=== PATIENT | female | born 1990 | race Caucasian/White ===

== ENCOUNTER → 2022-10-30 09:51 | Outpatient (BNVA) | payer OTHER, SELFPAY | PROVIDERS: PCP Nurse Practitioner; Visit Provider Nurse Practitioner Family | DX: F07.81 Postconcussional syndrome (principal); F41.9 Anxiety disorder, unspecified; F43.10 Post-traumatic stress disorder, unspecified; R42 Dizziness and giddiness; G43.109 Migraine with aura, not intractable, without status migrainosus | CPT/HCPCS: 99202 ==

== ENCOUNTER → 2023-01-08 08:51 | Outpatient (BNVA) | payer OTHER, SELFPAY | PROVIDERS: PCP Nurse Practitioner; Visit Provider Nurse Practitioner Family | DX: F43.10 Post-traumatic stress disorder, unspecified (principal); F07.81 Postconcussional syndrome; G43.109 Migraine with aura, not intractable, without status migrainosus; R42 Dizziness and giddiness; F41.9 Anxiety disorder, unspecified | CPT/HCPCS: 99212 ==

== ENCOUNTER 2023-02-09 11:00 | Outpatient (RCR) | payer OTHER, SELFPAY ==
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
--- NOTE | 2022-12-24 10:00 | MHC.OT.OP ---
[address] [phone] F: [phone] Occupational Therapy Progress Note Patient Name: Rehana Lee Diagnosis: Post-concussion syndrome Date of Evaluation: 11/26/22 Treatments to Date: 6 Cancellations to Date: 0 No Shows to Date: 0 Subjective: 12/24 - I'm doing well with my stress management strategies, I really need to work on my memory now. 12/22 - I haven't left the house since last Wednesday. I had such a bad headache all weekend. 12/16 - I tried to get too much done today and now I have a bad headache - the sun made it worse. 12/09 - I'm really not sleeping well. Maybe I was anxious about coming. I don't feel like myself and everything is changed. Pain Score: 0 Pain Location: headache Objective Measures: Pt seen for 60 min OT session for reevaluation and tx focusing on improving cognition. Grounding exercises for nervous system regulation x 5 min [facility]: Score 46 Severe problem areas rated: headaches, noise sensitivity, poor concentration Moderate problem areas: dizziness, sleep disturbance/fatigue, feeling depressed/frustrated, poor memory/processing, light sensitivity Language fluency 8 words in one minute Education re: verbal memory strategies, sequencing tasks, ways to improve attention with reading Initiated bCODE online cognitive training program from [facility] Status: Progressing Assessment: Rehana was seen for OT reassessment this date. Pt is progressing and met 3/4 STG's. Pt has been utilizing breathing and tapping strategies with good success for managing stress and anxiety. She reports decreased frustration and irritability since starting therapy. The [facility] Post-Concussion symptoms questionnaire was re-administered with a 12 point improvement. Self rated positive improvements noted in the areas of dizziness frequency, sleep quality, fatigue, and decreased blurry/double vision. Pt. was educated in remedial and compensatory memory strategies. We downloaded the bCODE karley for her to have a home program to work on for improving attention/memory, and mental flexibility skills. Rehana is very motivated to return to [facility] and feel like 'herself' for her upcoming wedding. Primary barriers remain frequent (almost daily) headaches that she relies on multiple medications to control (a goal of hers is to reduce meds), decreased attention span and concentration, poor short term memory, and delayed processing speed. She is working with a therapist weekly to assist with managing PTSD and anxiety symptoms. We discussed continuing therapy 2x/wk for 4 more weeks with focus on improving attention/concentration/memory for increased IND with IADL's and hopeful return to work. Short Term Goals: Decrease headache frequency/intensity by 50% - PROGRESSING Pt will be educated in and trial sleep hygiene strategies - MET Trial EFT and breathing techniques for stress management - MET Pt. will utilize 2-3 remedial and compensatory strategies to improve memory - MET Half-Way Goals: Decrease headache frequency and intensity to <1 week without headache medication IND with sleep hygiene strategies reporting >5 hours of consecutive sleep IND with stress management techniques Improved QOL as evidence by Rivermead score <32 Improve STM as evidenced by score of 28 on MOCA Improve attention span to >10 min during conversation utilizing learned strategies Tolerate >1 hour of computer work w/o dizziness or headache Frequency and Duration: The patient will be seen 2x/wk for 4 more weeks Treatment Plan: Neuro Re-ed Patient Education Desensitization/Sensory Re-ed ADL Training Post-concussive rehab including education, cognitive therapy, skill training program coordinator, balance exercises, sleep hygiene, stress management Electronically Signed By: Nehal Greene, MS OTR/L Reviewed/agree with student documentation: Therapist:
--- NOTE | 2023-02-09 13:23 | MHC.OT.DC ---
[address] [phone] F: [phone] Occupational Therapy Discharge Note Patient Name: Rehana Lee Provider: Gayle Dodd Diagnosis: Post-concussion syndrome Date of Evaluation: 11/26/22 Date of Discharge: 02/09/23 Treatments to Date: 10 Discharge Status: Improved Function Independent with HEP Discharge Summary: Rehana was seen for final OT visit today. She reports feeling slightly anxious about her upcoming wedding, although she has been managing daily tasks and dealing with stressors well utilizing her learned breathing and nervous system regulation exercises. The Rivermead was re-conducted with an improvement in all areas with a total score of 39 (a 19 point improvement overall). Continued problem areas remain headaches which have greatly improved in intensity and frequency, noise sensitivity, feeling frustrated, and taking longer to think. At this time, Rehana is IND with all strategies and demonstrates understanding of continuing with home program to improve memory/attn/processing skills. Thank you for this referral. Electronically Signed By: Nehal Greene MS OTR/L Reviewed/agree with student documentation: Therapist: Please Sign and return to therapist, thank you for your referral.
== END 2023-02-09 13:24 | disposition home or self-care (01) ==
LOC: HO.OT 11:00
PROVIDERS: PCP Nurse Practitioner; Visit Provider Nurse Practitioner Family
DX: F07.81 Postconcussional syndrome (principal); R42 Dizziness and giddiness
CPT/HCPCS: 97112; 97165; 97530

== ENCOUNTER → 2023-02-15 15:51 | Outpatient (BNVA) | payer OTHER, SELFPAY | PROVIDERS: PCP Nurse Practitioner; Visit Provider Nurse Practitioner Family | DX: F07.81 Postconcussional syndrome (principal); F09 Unspecified mental disorder due to known physiological condition; G43.109 Migraine with aura, not intractable, without status migrainosus; R42 Dizziness and giddiness; F43.10 Post-traumatic stress disorder, unspecified; F41.9 Anxiety disorder, unspecified | CPT/HCPCS: 99212 ==

== ENCOUNTER 2023-06-03 10:57 | Outpatient (AMB) | payer OTHER, SELFPAY ==
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
[2023-06-03 11:03] VITALS: BP 112/70; BMI 27.1
== END 2023-06-03 12:00 | disposition home or self-care (01) ==
PROVIDERS: Visit Provider Nurse Practitioner Family
DX: F41.9 Anxiety disorder, unspecified (principal); F43.10 Post-traumatic stress disorder, unspecified; F07.81 Postconcussional syndrome; G44.309 Post-traumatic headache, unspecified, not intractable; R41.89 Other symptoms and signs involving cognitive functions and awareness
CPT/HCPCS: 99214

== ENCOUNTER → 2023-06-03 10:57 | Outpatient (BNVA) | payer OTHER, SELFPAY | PROVIDERS: Visit Provider Nurse Practitioner Family ==

== ENCOUNTER 2023-09-16 10:21 | Outpatient (AMB) | payer OTHER, SELFPAY ==
[2023-09-16 10:29] VITALS: PULSE 110; O2SAT 98; BMI 27.1
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
== END 2023-09-16 11:25 | disposition home or self-care (01) ==
PROVIDERS: PCP Nurse Practitioner; Visit Provider Nurse Practitioner Family
DX: F43.10 Post-traumatic stress disorder, unspecified (principal); F07.81 Postconcussional syndrome; G44.309 Post-traumatic headache, unspecified, not intractable; F41.9 Anxiety disorder, unspecified; Z33.1 Pregnant state, incidental
CPT/HCPCS: 99214

== ENCOUNTER → 2023-09-16 10:21 | Outpatient (BNVA) | payer OTHER, SELFPAY | PROVIDERS: PCP Nurse Practitioner; Visit Provider Nurse Practitioner Family | DX: O99.342 Other mental disorders complicating pregnancy, second trimester (principal); F07.81 Postconcussional syndrome; F43.10 Post-traumatic stress disorder, unspecified; F41.9 Anxiety disorder, unspecified; F09 Unspecified mental disorder due to known physiological condition; O99.352 Diseases of the nervous system complicating pregnancy, second trimester; G43.109 Migraine with aura, not intractable, without status migrainosus; O26.892 Other specified pregnancy related conditions, second trimester; R42 Dizziness and giddiness; Z3A.18 18 weeks gestation of pregnancy; Z79.899 Other long term (current) drug therapy | CPT/HCPCS: 99212 ==

== ENCOUNTER 2023-12-14 08:57 | Outpatient (AMB) | payer OTHER, SELFPAY ==
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
[2023-12-14 09:05] VITALS: BP 108/78; PULSE 103; O2SAT 99; BMI 41.3
== END 2023-12-14 10:13 | disposition home or self-care (01) ==
PROVIDERS: PCP Nurse Practitioner; Visit Provider Nurse Practitioner Family
DX: G43.109 Migraine with aura, not intractable, without status migrainosus (principal); R42 Dizziness and giddiness; F07.81 Postconcussional syndrome
CPT/HCPCS: 99214

== ENCOUNTER → 2023-12-14 08:57 | Outpatient (BNVA) | payer OTHER, SELFPAY | PROVIDERS: PCP Nurse Practitioner; Visit Provider Nurse Practitioner Family | DX: F07.81 Postconcussional syndrome (principal); G43.109 Migraine with aura, not intractable, without status migrainosus; R42 Dizziness and giddiness | CPT/HCPCS: 99212 ==

== ENCOUNTER 2024-03-29 10:29 | Outpatient (AMB) | payer OTHER, SELFPAY ==
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
[2024-03-29 10:55] VITALS: BMI 41.3
== END 2024-03-29 11:41 | disposition home or self-care (01) ==
PROVIDERS: PCP Nurse Practitioner; Visit Provider Nurse Practitioner Family
DX: F07.81 Postconcussional syndrome (principal); G44.309 Post-traumatic headache, unspecified, not intractable; R42 Dizziness and giddiness; F41.9 Anxiety disorder, unspecified; F43.10 Post-traumatic stress disorder, unspecified; R41.89 Other symptoms and signs involving cognitive functions and awareness
CPT/HCPCS: 99214

== ENCOUNTER → 2024-03-29 10:29 | Outpatient (BNVA) | payer OTHER, SELFPAY | PROVIDERS: PCP Nurse Practitioner; Visit Provider Nurse Practitioner Family | DX: F07.81 Postconcussional syndrome (principal); G43.109 Migraine with aura, not intractable, without status migrainosus; R42 Dizziness and giddiness; F41.9 Anxiety disorder, unspecified; F43.10 Post-traumatic stress disorder, unspecified; F09 Unspecified mental disorder due to known physiological condition; Z79.899 Other long term (current) drug therapy | CPT/HCPCS: 99212 ==

== ENCOUNTER → 2024-10-25 10:36 | Outpatient (BNVA) | payer OTHER, SELFPAY | PROVIDERS: PCP Nurse Practitioner; Visit Provider Nurse Practitioner Family | DX: F07.81 Postconcussional syndrome (principal); G43.109 Migraine with aura, not intractable, without status migrainosus; R42 Dizziness and giddiness; F41.9 Anxiety disorder, unspecified; F43.10 Post-traumatic stress disorder, unspecified; F09 Unspecified mental disorder due to known physiological condition | CPT/HCPCS: 99212 ==

== ENCOUNTER 2025-03-28 08:28 | Outpatient (REF) | payer OTHER, SELFPAY ==
--- NOTE | ~2025-03-28 | XR_ITS ---
CLINICAL HISTORY: M25.562 - Pain in left knee Left knee three views Comparison: None provided Findings: No acute fracture or dislocation noted. No significant joint effusion identified. Degenerative change with joint space loss. This is greatest in medial compartment. Question prior ACL repair bony defects. No soft tissue foreign body. Impression: No acute bony abnormality This document has been electronically signed by: Gallito Whitman MD on 03/28/2025 21:09:02
--- OUTSIDE RECORDS SUMMARY | 2025-03-29 08:48 | XMS_ITS | Clinical Summary ---
Author Organization [facility] Address [address] [place] [phone] Phone Care Team Providers Care Edge Dyer Name Role Phone Lynn Phillips MD Primary [...] age to complete this topic Care Teams Edge Dyer Relationship Specialty Start Date End Date Lynn Phillips MD [address] [place] [id number] [facility] - General 11/24/17
== END 2025-03-28 08:29 | disposition home or self-care (01) ==
LOC: HO.HOSX 08:28
PROVIDERS: Visit Provider Orthopaedic Surgery
DX: M25.562 Pain in left knee (principal); S83.242A Other tear of medial meniscus, current injury, left knee, initial encounter; X50.1XXA Overexertion from prolonged static or awkward postures, initial encounter; Y93.9 Activity, unspecified; Y92.9 Unspecified place or not applicable; Y99.9 Unspecified external cause status
CPT/HCPCS: 73562

== ENCOUNTER 2025-03-28 15:04 | Outpatient (AMB) | payer OTHER, SELFPAY ==
[2025-03-28 15:08] VITALS: BMI 43.5
--- NOTE | 2025-03-28 15:08 | A.OFFVIS_ITS ---
Vital Signs 03/28/25 15:08 Height 5 ft 2 in Weight 238 lb BMI 43.5 Intake Visit Reasons: Left knee pain and giving way Intake Note: Rehana is a 35 year old female who presents with complaints of progressively worsening left knee pain and giving way. The patient states that she has undergone multiple bilateral knee surgeries all performed by Dr. Adamson. She has undergone left knee anterior cruciate ligament reconstructive surgery in the past. The patient states that she injured her knee 2-3 years ago. She twisted her knee and had acute onset of pain. The patient states that she felt a ?pop? in her knee at that time. Since that time her symptoms have gotten worse. She has failed the last 6 weeks of conservative treatment which has included physical therapy exercises, a home exercise program, Tylenol, and anti- inflammatory medicines. Allergies cephalexin (From Keflex) Allergy (Unknown, Verified 03/28/25 15:29) Unknown morphine (MORPHINE) Allergy (Unknown, Verified 03/28/25 15:29) HIVES Morphine Sulfate Allergy (Unknown, Uncoded 03/28/25 15:29) Hives Medication List - Last Reconciled 03/28/25 by Estrada Allen MD amitriptyline 10 - 20 mg (1 - 2 x 10 mg) PO BEDTIME 30 days magnesium oxide 400 mg PO BEDTIME 90 days methylphenidate HCl 10 mg PO BID 30 days riboflavin (vitamin B2) 400 mg (4 x 100 mg) PO DAILY 30 days sertraline 25 mg PO DAILY sumatriptan succinate 50 - 100 mg orally at onset of headache, may repeat in 2 hrs PRN; max 2 tabs per day or 4 tabs/week (may take with Tylenol or Ibuprofen) 30 days [facility] Surgical History History of carpal tunnel release History of repair of ACL History of knee surgery Family History Mother Celiac disease Colitis Father Hyperlipidemia Maternal Grandfather CAD (coronary artery disease) Social History (Updated 03/28/25 @ 15:17 by YULIA Keys) Alcohol intake: former Patient Tobacco Use Status: Never used Tobacco Current occupational status: employed and unemployed Physical Exam Vital Signs: BMI result Body Mass Index 43.5 Const Other: Well-nourished well-developed very friendly female awake alert and oriented x3 in no acute distress Extrem Other: Left knee examination shows a minimal effusion, mild crepitus with range of motion, tenderness along her medial joint line, positive Kaylah's test, no instability Results Reviewed Results Reviewed: Standing full weight-bearing x-rays of the patient's left knee show mild diffuse degenerative changes, no acute bony abnormalities, previous anterior cruciate ligament reconstructive surgical tunnels Assessment & Plan Assessment & Plan (1) Tear of medial meniscus of left knee: Code(s): S83.242A - Other tear of medial meniscus, current injury, left knee, initial encounter Category: Medical Plan Ms. Lee presents with progressively worsening left knee pain and mechanical symptoms most likely due to a medial meniscus tear and possible recurrence anterior cruciate ligament tearing. Thus, I will send the patient for an MRI of her left knee for further evaluation. I will see her back once the MRI is completed to discuss the findings and treatment options. Feel free to call me at any time should questions regarding her orthopedic management arise. Thank you very much for asking me to see this very friendly patient. I spent 22 minutes in reviewing the patient's records and imaging studies, seeing the patient and documenting in the medical record. Orders: Orders MR knee LT wo con Today S83.242A - Other tear of medial meniscus, current injury, left knee, initial encounter XR knee LT 3V 03/28/ M25.562 - Pain in left knee Coding Level of Care Code New Pt Level 3 (84393) Complex EM visit Add On G2211 Diagnoses Tear of medial meniscus of left knee S83.242A
--- OUTSIDE RECORDS SUMMARY | 2025-03-28 17:59 | XMS_ITS | Clinical Summary ---
Author Organization [facility] Address [address] [place] [phone] Phone Care Team Providers Care Carpenters Name Role Phone Lynn Phillips MD Primary Care Prov ider Social History Tobacco Use Types Packs/Day Years Used Date Smoking Tobacco: Never Assessed Comments Unknown Sex and Gender Information Value Date Recorded Sex Assigned at Not on file Legal Sex Female 12:18 PM EST Gender Identity Not on file Sexual Orientation Not on file Plan of Treatment Health Maintenance Due Date Last Done Comments MMR Vaccines (1 of 1 - Stand harjeet series) 1991 Varicella Vaccines (1 of 2 - 13+ 2-dose series) 2003 DTaP,Tdap,and Td Vaccines (1 - Tdap) 02/13/2008 Hepatitis B Vaccines (1 of 3 - 19+ 3-dose series) 2009 Influenza Vaccines (#1) 2024 COVID-19 Vaccine ( - 2023-2 5 season) 2024 HIB Vaccines Aged Out No longer eligi ble based on patient's age to complete this topic HPV Vaccines Aged Out No longer eligi ble based on patient's age to complete this topic Hepatitis A Vaccines Aged Out No long er eligible based on patient's age to complete this topic IPV Vaccines Aged Out No longer eligi ble based on patient's age to complete this topic Men B Vaccine Aged Out No longer elig ible based on patient's age to complete this topic Meningococcal Vaccine Aged Out No brian gabriel eligible based on patient's age to complete this topic Pneumococcal Vaccine Aged Out No long er eligible based on patient's age to complete this topic Care Teams Carpenters Relationship Specialty Start Date End Date Lynn Phillips MD [address] [place] [id number] [facility] - General 11/24/17
== END 2025-03-28 15:30 | disposition home or self-care (01) ==
LOC: HO.HOS 15:04
PROVIDERS: PCP Nurse Practitioner; Visit Provider Orthopaedic Surgery
DX: S83.242A Other tear of medial meniscus, current injury, left knee, initial encounter (principal)
CPT/HCPCS: 99203

== ENCOUNTER → 2025-03-28 15:07 | Outpatient (BNV) | payer OTHER, SELFPAY | PROVIDERS: Visit Provider Radiology Diagnostic Radiology | DX: M25.562 Pain in left knee (principal) | CPT/HCPCS: 73562 ==

== ENCOUNTER 2025-04-08 14:47 | Outpatient (REF) | payer OTHER, SELFPAY ==
--- NOTE | ~2025-04-08 | MR_ITS ---
CLINICAL HISTORY: S83.242A - Other tear of medial meniscus, current injury, left knee, ini... MR left knee without contrast Comparison: DX - XR KNEE LT 3V - 03/28/25 15:07 EDT Findings: Diminutive size medial meniscus. Tear of the posterior horn of the medial meniscus. The lateral meniscus is intact. Status post anterior cruciate ligament reconstruction the graft is discontinuous. There is anterior subluxation of tibia relative to the femur. The posterior cruciate ligament is increased in size and signal. The medial and lateral collateral ligaments are intact. Trace medial periligamentous edema. No edema in the posterior lateral corner. The extensor mechanism is intact. No joint effusion. Trace de la rosa's cyst. There is edema in the medial tibial plateau of the posterior aspect. Increased signal in the medial tibial plateau at the anterior aspect could be secondary to artifact. Bone marrow signal is otherwise normal aside from postsurgical change with artifact. There is chondromalacia in the medial tibiofemoral compartment overlying edema in the medial tibial plateau. Hyaline cartilage is otherwise preserved. Impression: Tear of the posterior horn of the medial meniscus. Diminutive size of the medial meniscus could be secondary to prior meniscectomy. Anterior cruciate ligament reconstruction with tear of the graft. Increased size and signal of the posterior cruciate ligament may indicate partial tear. Edema in the medial tibial plateau at the posterior aspect with associated chondromalacia which is in the region of the tear of the medial meniscus. This document has been electronically signed by: Catrina Hartmann MD on 04/09/2025 22:32:10
== END 2025-04-08 14:48 | disposition home or self-care (01) ==
LOC: HO.MRI 14:47
PROVIDERS: PCP Nurse Practitioner; Visit Provider Orthopaedic Surgery
DX: S83.242A Other tear of medial meniscus, current injury, left knee, initial encounter (principal)
CPT/HCPCS: 73721

== ENCOUNTER → 2025-04-08 14:57 | Outpatient (BNV) | payer OTHER, SELFPAY | PROVIDERS: PCP Nurse Practitioner; Visit Provider Radiology Diagnostic Radiology | DX: S83.242A Other tear of medial meniscus, current injury, left knee, initial encounter (principal) | CPT/HCPCS: 73721 ==

== ENCOUNTER 2025-04-12 10:32 | Outpatient (AMB) | payer OTHER, SELFPAY ==
--- NOTE | 2025-04-12 10:35 | MHC.OFFVIS ---
Vital Signs 04/12/25 10:37 Height 5 ft 2 in Weight 238 lb BMI 43.5 Intake Visit Reasons: OV- Left knee MRI review Intake Note: Rehana is a 35 year old female who presents with complaints of progressively worsening left knee pain and giving way. The patient states that she has undergone multiple bilateral knee surgeries all performed by Dr. Adamson. She has undergone left knee anterior cruciate ligament reconstructive surgery in the past. The patient states that she injured her knee 2-3 years ago. 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 The patient states that she felt a ?pop? in her knee at that time. Since that time her symptoms have gotten worse. She has failed the last 6 weeks of conservative treatment which has included physical therapy exercises, a home exercise program, Tylenol, and anti-inflammatory medicines. Allergies cephalexin (From Keflex) Allergy (Unknown, Verified 04/12/25 10:39) Unknown morphine (MORPHINE) Allergy (Unknown, Verified 04/12/25 10:39) HIVES Morphine Sulfate Allergy (Unknown, Uncoded 04/12/25 10:39) Hives Medication List - Last Reconciled 04/12/25 by Estrada Allen MD amitriptyline 10 - 20 mg (1 - 2 x 10 mg) PO BEDTIME 30 days magnesium oxide 400 mg PO BEDTIME 90 days methylphenidate HCl 10 mg PO BID 30 days riboflavin (vitamin B2) 400 mg (4 x 100 mg) PO DAILY 30 days sertraline 25 mg PO DAILY sumatriptan succinate 50 - 100 mg orally at onset of headache, may repeat in 2 hrs PRN; max 2 tabs per day or 4 tabs/week (may take with Tylenol or Ibuprofen) 30 days [facility] Surgical History History of carpal tunnel release History of repair of ACL History of knee surgery Family History Mother Celiac disease Colitis Father Hyperlipidemia Maternal Grandfather CAD (coronary artery disease) Social History (Updated 03/28/25 @ 15:17 by YULIA Keys) Alcohol intake: former Patient Tobacco Use Status: Never used Tobacco Current occupational status: employed and unemployed Physical Exam Vital Signs: BMI result Body Mass Index 43.5 Extrem Other: Left knee examination shows a minimal effusion, mild discomfort with range of motion, tenderness along her medial joint line, positive Kaylah's test, positive Gabriela's test Results Reviewed Results Reviewed: MRI of the patient's left knee shows a recurrent anterior cruciate ligament graft tear as well as a tear of the posterior horn of the medial meniscus Assessment & Plan Assessment & Plan (1) Tears of meniscus and ACL of left knee: Code(s): S83.207A - Unspecified tear of unspecified meniscus, current injury, left knee, initial encounter; S83.512A - Sprain of anterior cruciate ligament of left knee, initial encounter Category: Medical Plan Ms. Lee presents with left knee pain and mechanical symptoms due to tearing of her anterior cruciate ligament surgical graft as well as a medial meniscus tear. Non operative and surgical treatment options were discussed at length with the patient. The patient is considering undergoing surgery. Thus, I will have her evaluated by Dr. Magallon, my partner who performs this type of surgery. She will follow-up as instructed. Feel free to call me at any time should questions regarding her orthopedic management arise. I spent 21 minutes in reviewing the patient's records and imaging studies, seeing the patient and documenting in the medical record. Coding Level of Care Code Est Pt Level 3 (19180) Complex EM visit Add On G2211 Diagnoses Tears of meniscus and ACL of left knee S83.207A; S83.512A
[2025-04-12 10:37] VITALS: BMI 43.5
--- OUTSIDE RECORDS SUMMARY | 2025-04-12 11:13 | XMS_ITS | Clinical Summary ---
Author Organization [facility] Address [address] [place] [phone] Phone Care Team Providers Care Lens Edge Grinder Machine Name Role Phone Lynn Phillips MD Primary [...] of 3 - 19+ 3-dose series) 2009 COVID-19 Vaccine ( - 2023-2 5 season) 2024 Influenza Vaccines (#1) 2025 HIB Vaccines Aged Out No longer eligi [...] age to complete this topic Care Teams Lens Edge Grinder Machine Relationship Specialty Start Date End Date Lynn Phillips MD [address] [place] [id number] [facility] - General 11/24/17
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
== END 2025-04-12 11:09 | disposition home or self-care (01) ==
LOC: HO.HOS 10:33
PROVIDERS: PCP Nurse Practitioner; Visit Provider Orthopaedic Surgery
DX: S83.207A Unspecified tear of unspecified meniscus, current injury, left knee, initial encounter (principal); S83.512A Sprain of anterior cruciate ligament of left knee, initial encounter
CPT/HCPCS: 99213

== ENCOUNTER 2025-04-27 11:40 | Outpatient (AMB) | payer OTHER, SELFPAY ==
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
--- OUTSIDE RECORDS SUMMARY | 2025-04-27 11:43 | XMS_ITS | Data Portability ---
Author Organization [place] - [facility], [facility] Address [address] [facility] [address] [place] [address] Care Team Providers Care Software Developer Manager Name Role Phone VAMSI BRIAN Primary Care Provider Assessment Encounter Date Assessment Date Assessment LastModified by Organization Details LastModified Time 06/27/2024 06/27/2024 Patient appears to have postconcussive tinnitus related to her head trauma 3 years ago. [email or web address] Not available 06/27/2024 14:30:14 Plan of Treatment [...] Sensorineur al hearing loss of bilateral ears 055532378 Active 2023 JOANA ARIAS [address] [address], [place], [phone], [facility] 4 13:52:14 Bilateral tinnitus 4600288020465 Active 2023 LUIS ENRIQUE GARCIA MD [address] [facility] [place] [address], [place], [phone], [facility] 4 14:28:19 Problem Notes None recorded. Procedures Surgical History Date Name Laterality Status Provider Name and Address Organization Details Recorded Time 06/27/20 Comp Audio with Tymps - 54956 & 61180 completed SARAVANAN ROQUE, [facility] [address] [facility],[address] [address], [place], [phone], [facility] - [facility] 06/27/2024 13:51:59 reconstruction of anterior cruciate ligament of knee joint completed Jaclyn Bhatti [facility] 06/27/2024 14:13:51 Imaging Results None recorded. Procedure Notes None recorded. Medical Equipment None Reported. Allergies Allergen ID Allergen Name Allergen Category Reaction Reaction Severity Criticality Documentation Date Start Date Code Code System Note Provider Name and Address Organization Details Recorded Time 947531 morphine medicatio n Not available Not available Not available 06/27/2024 7052 RxNorm Jaclyn cerda [facility] 14:13:24 831974 Keflex medicatio n Not available Not available Not available 06/27/2024 26510 7 RxNorm Jaclyn cerda [facility] 14:13:30 Medications Name Sig Start Date Stop [...] IN 2 HOURS IF NEDEED MAX 2/DAY,4/W KALTAG 06/27 completed Not Available Not Available Not [...] Details Last Updated DateTime 06/27/2024 157.48 cm 47838.47 g Jaclyn Bhatti [place] - [facility] 06/27/2024 14:11:03 Social History None recorded. Functional Status None recorded. Mental Status None recorded. Family History Nothing Reported. Medical History Condition Response Migraines Y Anxiety Y Depression Y Gynecological HistoryNo gynecological history recorded. Obstetrics History GPAL:G 0 P 0 0 0 0 Past Encounters Encounter ID Performer Location Encounter Start Date Encounter Closed Date Diagnosis/Indication Diagnosis SNOMED-CT Code Diagnosis ICD10 Code Diagnosis Note [id number] LUIS ENRIQUE GARCIA MD [facility] [address] [address] 06/27/2024 13:26:54 06/27/2024 14:29:57 Sensorineural hearing loss of bilateral ears 463935361 H90.3 Audiologic al evaluation results:Ri ght ear:Normal sloping to mild sensorineu ral hearing loss with excellent word recognitio n.Left ear:Normal sloping to mild sensorineu ral hearing loss with excellent word recognitio n.Tympanom etry:Right Ear:Type ALeft Ear:Type AThese findings were reviewed with the patient. Not enough hearing loss to consider amplificat ion. Bilateral tinnitus 048[address] 23686 102 H93.13 Today we discussed the pathophysi [...] Member ID Guarantor Name 06/27/2024 1 GANESH ([facility]) [id number] Rehana Lee [place] [id number] Rehana Lee Notes Date Note Type Note [...] loud noise exposure. LUIS ENRIQUE GARCIA MD [address] [place] [address], [place], [phone], [facility] - [facility] 06/27/2024 14:30:51 OBGyn Episode No OBEpisode recorded.
--- OUTSIDE RECORDS SUMMARY | 2025-04-27 11:43 | XMS_ITS | Clinical Summary ---
Author Organization [facility] Address [address] [place] [phone] Phone Care Team Providers Care Forestry Laborer Name Role Phone Lynn Phillips MD Primary [...] age to complete this topic Care Teams Forestry Laborer Relationship Specialty Start Date End Date Lynn Phillips MD [address] [place] [phone] [facility] - General 11/24/17
== END 2025-04-27 15:30 | disposition home or self-care (01) ==
LOC: HO.HSMS 11:41
PROVIDERS: PCP Nurse Practitioner; Visit Provider Nurse Practitioner Family
DX: F07.81 Postconcussional syndrome (principal); G44.309 Post-traumatic headache, unspecified, not intractable; R42 Dizziness and giddiness; F43.10 Post-traumatic stress disorder, unspecified; F41.9 Anxiety disorder, unspecified; F09 Unspecified mental disorder due to known physiological condition
CPT/HCPCS: 99214

== ENCOUNTER 2025-05-14 10:41 | Outpatient (AMB) | payer OTHER, SELFPAY ==
--- NOTE | 2025-05-14 10:45 | MHC.OFFVIS ---
Vital Signs 05/14/25 10:46 Height 5 ft 2 in Weight 238 lb BMI 43.5 Intake Visit Reasons: OV- Left ACL tear - Discuss Surgery Intake Note: Rehana is a 35 year old female who presents today for a follow up of her Left Knee. She was last seen with Dr. Allen who has referred her to discuss surgery. Hx of ACL Reconstruction. Impression: Tear of the posterior horn of the medial meniscus. Diminutive size of the medial meniscus could be secondary to prior meniscectomy. Anterior cruciate ligament reconstruction with tear of the graft. Increased size and signal of the posterior cruciate ligament may indicate partial tear. Edema in the medial tibial plateau at the posterior aspect with associated chondromalacia which is in the region of the tear of the medial meniscus. Allergies cephalexin (From Keflex) Allergy (Unknown, Verified 05/14/25 10:53) Unknown morphine (MORPHINE) Allergy (Unknown, Verified 05/14/25 10:53) HIVES Morphine Sulfate Allergy (Unknown, Uncoded 05/14/25 10:53) Hives HPI HPI OV- Left ACL tear - Discuss Surgery: Details: Rehana is a 35 year old female who presents today for a follow up of her Left Knee. She was last seen with Dr. Allen who has referred her to discuss surgery. She had 1 right knee ACL reconstruction about 15 years ago and she has had 2 ACL reconstructions in the left knee. First 1 was done in 2003 and then a 2nd 1 in 2010. The 1st was done with a patellar autograft of the 2nd was done with a bone patellar bone allograft. She did well between the 2 surgeries but the 2nd surgery required a large meniscectomy. She did well up until about 2 years ago when she started to be less active. She became and gain weight and her knee has become increasingly painful. She states she feels that she has some instability and also pain. Most of the pain is lateral rather than medial. She would like to get back to her regular activities. Was able to squat and jog comfortably until about 18 mo ago. She wants to jog, walking regularly, carry/ play with her child. She feels her knee swells regularly. [facility] Surgical History History of carpal tunnel release History of repair of ACL History of knee surgery Family History Mother Celiac disease Colitis Father Hyperlipidemia Maternal Grandfather CAD (coronary artery disease) Social History Alcohol intake: former Patient Tobacco Use Status: Never used Tobacco Current occupational status: employed and unemployed Physical Exam Vital Signs: BMI result Body Mass Index 43.5 Extrem Other: Full range of motion left knee. She has a positive pivot shift on the left. Minimal effusion. No tenderness to palpation over the joint line but sore in the posterolateral calf along the peroneal tendon. Results Reviewed Results Reviewed: I personally reviewed the MR images. Tear of the posterior horn of the medial meniscus. Diminutive size of the medial meniscus could be secondary to prior meniscectomy. Anterior cruciate ligament reconstruction with tear of the graft. Increased size and signal of the posterior cruciate ligament may indicate partial tear. Edema in the medial tibial plateau at the posterior aspect with associated chondromalacia which is in the region of the tear of the medial meniscus. 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 We had a long discussion and I think I would focus on physical therapy for 6-8 weeks and then see me back. We did discuss surgery and I do think she would benefit from it but I think she would also benefit from strengthening and continuing her weight loss journey. She has been losing weight rapidly over the past 18 months I think this will be beneficial for her to optimize her physical function prior to surgery as 3rd ACL reconstruction at 35 we will require significant patients and diligence postoperatively. (2) History of repair of ACL: Code(s): Z98.890 - Other specified postprocedural states Category: Surgical Plan: Orders: Orders PT Evaluation and Treatment Today S83.207A - Unspecified tear of unspecified meniscus, current injury, left knee, initial encounter, S83.512A - Sprain of anterior cruciate ligament of left knee, initial encounter, Z98.890 - Other specified postprocedural states Coding Level of Care Code Est Pt Level 4 (52800) Diagnoses Tears of meniscus and ACL of left knee S83.207A; S83.512A History of repair of ACL Z98.890
[2025-05-14 10:46] VITALS: BMI 43.5
--- OUTSIDE RECORDS SUMMARY | 2025-05-14 11:23 | XMS_ITS | Clinical Summary ---
Author Organization [facility] Address [address] [place] [id number] Phone Care Team Providers Care Manager Urgent Care Name Role Phone Lynn Phillips MD Primary [...] of 3 - 19+ 3-dose series) 2009 HPV Vaccines (1 - 3-dose SCD M series) 2017 COVID-19 Vaccine ( - 2023-2 5 season) [...] age to complete this topic Care Teams Manager Urgent Care Relationship Specialty Start Date End Date Lynn Phillips MD [address] [place] [id number] PCP - General 11/24/17
== END 2025-05-14 11:25 | disposition home or self-care (01) ==
LOC: HO.HOS 10:41
PROVIDERS: PCP Nurse Practitioner; Visit Provider Orthopaedic Surgery
DX: S83.512A Sprain of anterior cruciate ligament of left knee, initial encounter (principal); S83.207A Unspecified tear of unspecified meniscus, current injury, left knee, initial encounter; Z98.890 Other specified postprocedural states
CPT/HCPCS: 99213